=== PATIENT | male | born 1990 | race Caucasian/White ===

== ENCOUNTER 2025-05-17 08:39 | Emergency (ER) | payer MEDICAID, OTHER ==
[~2025-05-17] VITALS: Ht 154.9 cm; Wt 63.6 kg
[2025-05-17 08:44] VITALS: TEMP 98.3
[2025-05-17 09:01] VITALS: BP 122/79; PULSE 82; RESP 16; O2SAT 99
[2025-05-17 12:07] LABS: PH,URINE DRUG SCREEN 6.5 (5.0-8.0)
[2025-05-17 12:15] LABS: ALCOHOL, URINE DRUG SCREEN NEGATIVE (NEGATIVE); AMPHET/METH SCREEN,URINE NEGATIVE (NEGATIVE); BARBITURATE SCREEN, URINE NEGATIVE (NEGATIVE); CANNABINOID SCREEN,URINE NEGATIVE (NEGATIVE); COCAINE SCREEN,URINE NEGATIVE (NEGATIVE); METHADONE SCREEN, URINE NEGATIVE (NEGATIVE)
== END 2025-05-17 12:59 | disposition left against medical advice (07) ==
LOC: EMS 08:39
DX: T74.21XA Adult sexual abuse, confirmed, initial encounter (principal); F17.210 Nicotine dependence, cigarettes, uncomplicated; F15.90 Other stimulant use, unspecified, uncomplicated; Z79.899 Other long term (current) drug therapy
CPT/HCPCS: 80307; 99283